=== PATIENT | female | born 1980 | race Caucasian/White ===

== ENCOUNTER → 2020-04-23 | Outpatient (CLI) | payer BC, OTHER | END | disposition home or self-care (01) | LOC: STAR 13:15 | PROVIDERS: ATTEND Anesthesiology | DX: Z20.828 Contact with and (suspected) exposure to other viral communicable diseases (principal) | CPT/HCPCS: 87635 ==

== ENCOUNTER 2020-04-28 11:02 | Day surgery (SDC) | payer BC, OTHER ==
[~2020-04-28] VITALS: Ht 157.5 cm; Wt 52.4 kg
[2020-04-28 11:51] VITALS: BP 114/80
[2020-04-28] MEDS ORDERED: CHLORHEXIDINE 15 ML UDC ONE (11:57)
[2020-04-28] MEDS ORDERED: CHLORHEXIDINE 15 ML UDC MM ONE (12:00)
[2020-04-28] MEDS ORDERED: RABE20TA18 PO (12:16)
[2020-04-28] MEDS ORDERED: SUCR1TAB33 PO (12:16)
[2020-04-28] MEDS ORDERED: ONDA4TAB7 PO (12:16)
[2020-04-28] MEDS ORDERED: phenergan RC (12:16)
[2020-04-28 12:23] LABS: HCG UR SG 1.028 (1.003-1.030)
[2020-04-28] MEDS ORDERED: ZOLP-413 PO (12:26)
[2020-04-28] MEDS ORDERED: BUPR-173 PO (12:26)
[2020-04-28] MEDS ORDERED: DULO60CA7 PO (12:26)
[2020-04-28] MEDS ORDERED: SCOPOLAMINE 1MG PATCH TD ONE ×2 (12:30→12:31)
[2020-04-28] MEDS ORDERED: LACTATED RINGERS 1,000 ML IV SCH (12:30)
[2020-04-28] MEDS ORDERED: LIDOCAINE-MPF 2% ,5ML ONE (12:32)
[2020-04-28] MEDS ORDERED: GLYCOPYRROLATE 0.2MG/1ML, 5ML ONE (12:32)
[2020-04-28] MEDS ORDERED: PROPOFOL 10 MG/ML, 20ML ONE (12:32)
[2020-04-28] MEDS ORDERED: DEXAMETHASONE 4 MG/ML, 5ML ONE (12:32)
[2020-04-28] MEDS ORDERED: MIDAZOLAM 1 MG/ML, 2ML ONE (12:32)
[2020-04-28] MEDS ORDERED: DIPHENHYDRAMINE 50 MG/ML, 1ML IVPush PRN (13:30)
[2020-04-28] MEDS ORDERED: HYDROmorphone 1 MG/ML, 1ML INJ IVPush PRN (13:30)
[2020-04-28] MEDS ORDERED: EPHEDRINE 50 MG/ML, 1ML IVPush PRN (13:30)
[2020-04-28] MEDS ORDERED: DIAZEPAM 5 MG/ML, 2ML IVPush PRN (13:30)
[2020-04-28] MEDS ORDERED: METOCLOPRAMIDE 5 MG/ML, 2ML IVPush PRN (13:30)
[2020-04-28] MEDS ORDERED: LORazepam 2 MG/ML, 1ML IVPush PRN (13:30)
[2020-04-28] MEDS ORDERED: MIDAZOLAM 1 MG/ML, 2ML IV PRN (13:30)
[2020-04-28] MEDS ORDERED: LABETALOL 5MG/ML, 20ML IV PRN (13:30)
[2020-04-28] MEDS ORDERED: hydrALAzine 20 MG/ML, 1ML IV PRN (13:30)
[2020-04-28] MEDS ORDERED: HYDROcodone/APAP 7.5-325MG/15ML UDC PO PRN (13:30)
[2020-04-28] MEDS ORDERED: EPHEDRINE 50 MG/ML, 1ML IM PRN (13:30)
[2020-04-28] MEDS ORDERED: ALBUTEROL SULFATE 2.5 MG/3 ML NPPB PRN (13:30)
[2020-04-28] MEDS ORDERED: OXYcodone 5 MG/5 ML ORAL.SOL UDC PO PRN (13:30)
[2020-04-28] MEDS ORDERED: FENTANYL PF 100 MCG/2ML IV PRN (13:30)
[2020-04-28] MEDS ORDERED: METHOCARBAMOL 1,000 MG in DEXTROSE 5% 100 ML IV PRN (13:30)
[2020-04-28] MEDS ORDERED: ONDANSETRON 2MG/ML, 2ML IVPush PRN (13:30)
[2020-04-28] MEDS ORDERED: HALOPERIDOL 5 MG/ML IV PRN (13:30)
== END 2020-04-28 15:15 | disposition home or self-care (01) ==
LOC: OUT 11:02
PROVIDERS: ATTEND Internal Medicine Gastroenterology
DX: K21.9 Gastro-esophageal reflux disease without esophagitis (principal); K29.50 Unspecified chronic gastritis without bleeding; D12.5 Benign neoplasm of sigmoid colon; K64.8 Other hemorrhoids; K31.7 Polyp of stomach and duodenum; J45.909 Unspecified asthma, uncomplicated; G43.909 Migraine, unspecified, not intractable, without status migrainosus; M79.7 Fibromyalgia; Z88.8 Allergy status to other drugs, medicaments and biological substances; Z88.1 Allergy status to other antibiotic agents; Z88.2 Allergy status to sulfonamides; Z79.899 Other long term (current) drug therapy; Z90.49 Acquired absence of other specified parts of digestive tract; Z98.890 Other specified postprocedural states
CPT/HCPCS: 43239; 45380; 45385; 81025; 88305; J1100; J2250; J2704; J7120